=== PATIENT | male | born 1975 | race Hispanic/Latino ===

== ENCOUNTER 2018-05-31 18:58 | Inpatient (IN) | payer SELFPAY ==
[2018-05-31 20:37] LABS: #Lymphocytes 2.1 thou/uL (1.20-3.40); #Monocytes 0.7 thou/uL (0.11-0.59); #Neutrophils 9.8 thou/uL (1.40-6.50); %Basophils 0.2 % (0.0-1.0); %Eosinophils 0.2 % (0.0-10.0); %Lymphocytes 16.3 % (21.0-51.0); %Monocytes 5.6 % (0.0-10.0); %Neutrophils 77.6 % (42.0-75.0); Hemoglobin 15.5 g/dL (14.0-18.0); Mean Corpuscular HGB CONC 33.4 g/dL (32.0-36.0); Mean Corpuscular Hemoglobin 28.9 pg (27.0-31.0); Mean Corpuscular Volume 86.6 fL (78.0-98.0); Mean Platelet Volume 6.7 fL (7.4-10.4); Platelet Count 420 thou/uL (130-400); RBC Distribution Width 11.4 % (11.5-14.5); Red Blood Cell (RBC) Count 5.35 mill/uL (4.70-6.10); White Blood Cell (WBC) Count 12.6 thou/uL (4.8-10.8)
--- NOTE | 2018-05-31 20:52 | RAD ---
RIGHT FOOT RADIOGRAPHS THREE VIEWS 05/31/18 PROVIDED CLINICAL HISTORY: Right foot pain. FINDINGS: There is no evidence for fracture. Soft tissue gas is seen involving the interspace of the second and third digits. Vascular calcifications are seen. Alignment appears anatomic. Joint spaces appear pres erved. IMPRESSION: Soft tissue gas is seen at the second-third digit interspace. Correlate with concerns for infection. POS: [facility]
[2018-05-31 20:57] LABS: ALT (SGPT) Less than 7 U/L (8-55); AST (SGOT) 11 U/L (5-34); Albumin 3.6 g/dL (3.5-5.0); Alkaline Phosphatase 139 U/L (40-150); Anion Gap 15 mmol/L (10-20); BUN (Urea Nitrogen) 16 mg/dL (8.9-20.6); Bilirubin, Total 0.5 mg/dL (0.2-1.2); Calc. Creatinine Clearance 0 mL/min (70-130); Calcium 9.5 mg/dL (7.8-10.44); Carbon Dioxide 25 mmol/L (22-29); Chloride 94 mmol/L (98-107); Estimated GFR-MDRD 60; Globulin 4.5 g/dL (2.4-3.5); Lipase 16 U/L (8-78); Potassium 4.2 mmol/L (3.5-5.1); Protein, Total 8.1 g/dL (6.0-8.3); Sodium 130 mmol/L (136-145)
[2018-05-31 21:01] LABS: Glucose 560 mg/dL (70-105)
[2018-05-31] MEDS ORDERED: Piperacillin/Tazobactam 3.375 GM VIAL ONE (21:09)
[2018-05-31] MEDS ORDERED: Insulin Regular 300 UNITS/3 ML VIAL ONE (21:50)
[2018-06-01] MEDS ORDERED: HYDROcodone/Acetaminophen 10/325 mg Tablet ONE (00:16)
[2018-06-01] MEDS ORDERED: Ondansetron ODT 4 MG TAB PO PRN (00:53)
[2018-06-01] MEDS ORDERED: Acetaminophen 325 MG TAB PO PRN (00:53)
[2018-06-01] MEDS ORDERED: Dextrose 50% Abboject 50 ML SYRINGE SLOW IVP PRN (00:53)
[2018-06-01] MEDS ORDERED: Calcium Carbonate 500 MG ChewTAB PO PRN (00:53)
[2018-06-01] MEDS ORDERED: Bisacodyl 5 MG TAB PO PRN (00:53)
[2018-06-01] MEDS ORDERED: Senokot S 8.6-50 MG TAB PO PRN (00:53)
[2018-06-01] MEDS ORDERED: Dextrose 5% in Water 1,000 ML IV PRN (00:53)
[2018-06-01] MEDS ORDERED: Ondansetron PF 4 MG/2 ML Vial IVP PRN (00:53)
[2018-06-01] MEDS: Sodium Chloride 0.9% 1,000 ML IV SCH ×4 (02:25→23:23)
[2018-06-01 04:10] LABS: Anion Gap 12 mmol/L (10-20); BUN (Urea Nitrogen) 15 mg/dL (8.9-20.6); Calc. Creatinine Clearance 0 mL/min (70-130); Calcium 8.4 mg/dL (7.8-10.44); Carbon Dioxide 28 mmol/L (22-29); Chloride 102 mmol/L (98-107); Estimated GFR-MDRD 83; Glucose 205 mg/dL (70-105); Sodium 138 mmol/L (136-145)
[2018-06-01 04:18] LABS: #Lymphocytes 2.2 thou/uL (1.20-3.40); #Monocytes 1.2 thou/uL (0.11-0.59); #Neutrophils 10.3 thou/uL (1.40-6.50); %Basophils 0.2 % (0.0-1.0); %Eosinophils 0.3 % (0.0-10.0); %Lymphocytes 15.9 % (21.0-51.0); %Monocytes 8.8 % (0.0-10.0); %Neutrophils 74.9 % (42.0-75.0); Mean Corpuscular HGB CONC 34.6 g/dL (32.0-36.0); Mean Corpuscular Hemoglobin 29.6 pg (27.0-31.0); Mean Corpuscular Volume 85.4 fL (78.0-98.0); Mean Platelet Volume 6.7 fL (7.4-10.4); Platelet Count 357 thou/uL (130-400); RBC Distribution Width 11.2 % (11.5-14.5); Red Blood Cell (RBC) Count 4.04 mill/uL (4.70-6.10); White Blood Cell (WBC) Count 13.7 thou/uL (4.8-10.8)
[2018-06-01] MEDS: Piperacillin/Tazobactam 3.375 GM in Sodium Chloride 0.9% 100 ML IVPB SCH ×4 (09:54→21:44)
--- NOTE | 2018-06-01 10:00 | HP ---
CHIEF COMPLAINT: Right foot pain. HISTORY OF PRESENT ILLNESS: This is a 42-year-old male with past medical history of diabetes mellitus type 2, presenting with foot pain, which has been ongoing for the past four days prior to the day of admission. The patient states that he kicked the door and after kicking the door basically, he injured his third toe. At this point, the patient toe has some redness and the pain scale is 6/10 and pain radiates to the dorsal aspect of the foot and the patient denies any tingling or numbness sensation. The patient denies any fever, nausea, vomiting, chest pain, palpitation, or abdominal pain. REVIEW OF SYSTEMS: Positive for right foot pain and wound at the third right toe. Otherwise, all systems are reviewed and are negative. PAST MEDICAL HISTORY: Type 2 diabetes mellitus. PAST SURGICAL HISTORY: No surgical history. PSYCHIATRIC HISTORY: No psych history. FAMILY HISTORY: Reviewed and noncontributory to this visit. SOCIAL HISTORY: The patient drinks socially. The patient denies any illicit drug use and the patient denies any smoking history. ALLERGIES: NO KNOWN DRUG ALLERGIES. CURRENT MEDICATIONS: No medications. PHYSICAL EXAMINATION: VITAL SIGNS: The patient's blood pressure is 178/106, pulse is 113, respiratory rate of 16, temperature of 98.8, and oxygen saturation of 100. GENERAL: The patient is lying in bed, does not appear to be in any acute distress. HEENT: Normocephalic and atraumatic. Pupils are equally round and reactive to light. Extraocular movements are intact. CARDIAC: Positive S1 and S2. Tachycardic. RESPIRATORY: Clear to auscultation bilaterally. No wheezing, no rales, no rhonchi appreciated. ABDOMEN: Soft, nontender, and nondistended. EXTREMITIES: The patient has 5/5 upper extremity strength. Good pulses bilaterally at the upper extremity. Lower extremities; the patient has 5/5 lower extremity strength. No edema noted. The patient do have bruising and slight skin sloughing at the dorsal aspect. There is some erythema noted and there is mild tenderness at the dorsal aspect of the foot and the third toe has some swell and drainage and odorous smell. NEUROLOGIC: Cranial nerves 2 through 12 are grossly intact. No neurologic deficit noted. IMAGING: X-ray of the right foot shows that there is a soft tissue gas seen on the second and third digit interspace. LABORATORY DATA: WBC is 12.6, hemoglobin is 15.5, hematocrit is 46.3, and platelet count is 420. Sodium is 130, potassium is 4.2, chloride is 94, carbon dioxide of 25, anion gap of 15, BUN is 16, creatinine is 1.30, GFR is 30, and glucose is 560. ASSESSMENT AND PLAN: This is a 42-year-old being admitted, 1. Sepsis secondary to right toe cellulitis, concern for possible osteomyelitis. Right foot x-ray shows that there is gas between the second and third digit. At this point, we are very concerned for osteomyelitis. We have started the patient on vancomycin and Zosyn for broad-spectrum coverage. We are going to continue the patient on antibiotics. We will order MRI of the foot. We will continue the patient on the current management. We will give the patient p.r.n. medications for pain. 2. Diabetes mellitus type 2, uncontrolled. At this time, the patient's blood sugar is 560. We are going to do insulin sliding scale. We will monitor the patient's blood sugars. We will continue IV fluids. 3. Acute kidney injury likely due to dehydration. At this time, we will continue IV fluids and we will monitor the patient's creatinines in the a.m. 4. Hypertension, uncontrolled. We will give the patient p.r.n. blood pressure medications. 5. DVT and GI prophylaxis. Job ID: [id number]
[2018-06-01] MEDS: Vancomycin HCl 750 MG in Sodium Chloride 0.9% 250 ML 250 ML IVPB SCH ×2 (10:51→22:38)
[2018-06-01] MEDS ORDERED: Gadobenate Dimeglumine 529 MG/1 ML (20ML VIAL) ONE (11:15)
[2018-06-01] MEDS: HumaLOG 300 UNITS/3 ML VIAL SC PRN ×3 (11:29→23:48)
[2018-06-01] MEDS ORDERED: HumaLOG 300 UNITS/3 ML VIAL ONE (11:35)
--- NOTE | 2018-06-01 15:56 | MRI ---
MRI RIGHT FOOT WITH AND WITHOUT CONTRAST: 06/01/18 HISTORY: Osteomyelitis. COMPARISON: Radiograph prior day. FINDINGS: On T1 weighted imaging sequence, there is loss of normal marrow signal within the middle toe proximal phalanx and middle phalanx. There is associated increased fluid signal as well as cortical erosions. Subcutaneous gas is present. Small lateral abscess is present. There is intraosseous abscess of the middle phalanx. The remainder of the bones are without osteomyelitis. There is some low grade tenosynovitis of the lo ng flexor tendon of the middle toe. No evidence for pyomyositis. Diffuse muscle atrophy. IMPRESSION: Osteomyelitis throughout the proximal phalanx and middle phalanx. There is associated subcutaneous e mphysema, small lateral and surrounding abscess, and intracortical interosseous abscess of the middle phalanx. POS: [facility]
[2018-06-01] MEDS: hydrALAZINE 20 MG/ML VIAL SLOW IVP PRN (16:14)
--- NOTE | 2018-06-01 17:47 | PDOC.PN ---
- Subjective Encounter Start Date: 06/01/18 Encounter Start Time: 10:40 Pt seen for followup re: sepsis. Denies chest pain or shortness of breath. Had right foot pain yesterday, not now. - Objective Resuscitation Status - Order Detail: 06/01/18 00:53 Resuscitation Status Routine Resuscitation Status: FULL: Full Resuscitation MAR Reviewed: Yes Vital Signs & Weight: Vital Signs (12 hours) Temp Pulse Resp BP Pulse Ox 06/01/18 16:14 100 06/01/18 16:10 97.8 F 105 H 16 172/96 H 98 06/01/18 12:53 97.5 F L 100 16 128/78 98 06/01/18 11:45 97.5 F L 100 16 128/78 98 Weight Weight 106 lb 14.787 oz Result Diagrams: 06/01/18 03:20 06/01/18 03:20 Additional Labs: Accuchecks 06/01/18 06/01/18 06/01/18 11:03 06:36 00:20 POC Glucose 362 H 174 H 273 H Labs reviewed by me Phys Exam - Physical Examination Constitutional: NAD HEENT: moist MMs, sclera anicteric, oral pharynx no lesions, 2+ tonsils Neck: no nodes, no JVD, supple, full ROM Respiratory: clear to auscultation bilateral Cardiovascular: RRR, no rub S1, S2 Gastrointestinal: soft, non-tender, no distention, positive bowel sounds Neurological: moves all 4 limbs Psychiatric: normal affect, A&O x 3 Deviation from normal: R foot cellulitis as documented Dx/Plan (1) Sepsis Code(s): A41.9 - SEPSIS, UNSPECIFIED ORGANISM Status: Acute Comment: secondary to diabetic foot infection (2) Cellulitis Code(s): L03.90 - CELLULITIS, UNSPECIFIED Status: Acute Comment: continue IV Zosyn and vancomycin (3) Osteomyelitis Code(s): M86.9 - OSTEOMYELITIS, UNSPECIFIED Status: Acute Comment: continue IV Zosyn and vancomycin (4) DM2 (diabetes mellitus, type 2) Status: Chronic Comment: continue accuchecks, insulin sliding scale - Plan * . Review of Systems - Review of Systems Constitutional: negative: fever, chills, sweats, weakness, malaise Respiratory: negative: Cough, Shortness of Breath, SOB with Excertion, Pleuritic Pain, Wheezing Cardiovascular: negative: chest pain, palpitations, orthopnea, paroxysmal nocturnal dyspnea, edema, light headedness Gastrointestinal: negative: Nausea, Vomiting, Abdominal Pain, Diarrhea, Constipation, Melena, Hematochezia Genitourinary: negative: Dysuria, Frequency, Incontinence, Hematuria, Retention Musculoskeletal: Foot Pain Skin: Lesions - Medications/Allergies Allergies/Adverse Reactions: Allergies Allergy/AdvReac Type Severity Reaction Status Date / Time No Known Drug Allergies Allergy Verified 06/01/18 13:17 Medications: Current Medications Acetaminophen (Tylenol) 650 mg PO Q4H PRN PRN Reason: Headache/Fever/Mild Pain (1-3) Bisacodyl (Dulcolax) 10 mg PO DAILYPRN PRN PRN Reason: Constipation Calcium Carbonate (Tums) 1,000 mg PO Q4H PRN PRN Reason: Heartburn or Indigestion Dextrose/Water (Dextrose 50%) 25 gm SLOW IVP PRN PRN PRN Reason: Hypoglycemia Glucagon (Glucagon) 1 mg IM PRN PRN PRN Reason: Hypoglycemia Hydralazine HCl (Apresoline) 10 mg SLOW IVP Q6H PRN PRN Reason: SBP>170 Last Admin: 06/01/18 16:14 Dose: 10 mg Sodium Chloride (Normal Saline 0.9%) 1,000 mls @ 100 mls/hr IV .Q10H [facility] Last Admin: 06/01/18 12:11 Dose: Not Given Dextrose/Water (D5w) 1,000 mls @ 0 mls/hr IV .Q0M PRN PRN Reason: Hypoglycemia Vancomycin HCl 750 mg/ Sodium (Chloride) 250 mls @ 250 mls/hr IVPB 1000,2200 [facility] Last Admin: 06/01/18 10:51 Dose: 250 mls Piperacillin Sod/Tazobactam (Sod 3.375 gm/ Sodium Chloride) 100 mls @ 200 mls/ hr IVPB 0300,0900,1500,2100 [facility] Last Admin: 06/01/18 15:30 Dose: 100 mls Influenza Virus Vaccine Quadrival (Fluzone Quad [id number] Syringe) 0.5 ml IM .ONCE ONE Stop: 06/01/18 21:01 Insulin Human Lispro (Humalog) 0 units SC .MILD SLIDING SCALE PRN PRN Reason: Mild Correctional Scale Last Admin: 06/01/18 15:30 Dose: 5 unit Insulin Human Lispro (Humalog) 0 units SC .BEDTIME SLIDING SC PRN PRN Reason: Bedtime Correctional Scale Miscellaneous Medication (Pharmacy To Dose) 1 each IVPB PRN PRN PRN Reason: Pharmacy to dose Ondansetron HCl (Zofran Odt) 4 mg PO Q6H PRN PRN Reason: Nausea/Vomiting Ondansetron HCl (Zofran) 4 mg IVP Q6H PRN PRN Reason: Nausea/Vomiting Senna/Docusate Sodium (Senokot S) 2 tab PO BIDPRN PRN PRN Reason: Constipation Sodium Chloride (Flush - Normal Saline) 10 ml IVF Q12HR PRN PRN Reason: Saline Flush Sodium Chloride (Flush - Normal Saline) 10 ml IVF PRN PRN PRN Reason: Saline Flush
[2018-06-01] MEDS ORDERED: traMADol HCl 50 MG TAB PO PRN (20:07)
[2018-06-01] MEDS ORDERED: Acetaminophen/Codeine 30-300mg Tablet PO PRN (20:07)
--- NOTE | 2018-06-02 01:20 | HP ---
HISTORY OF PRESENT ILLNESS: Ede Randolhp is a 42-year-old male patient, who does not take medications at home, but has taken insulin in the past. [place] He works in a kitchen locally. He has his and children with him. He presents to the hospital with a right third toe problem. He has had plain x-rays and MRI demonstrating changes in soft tissue gas and osteomyelitis. He had been placed on vancomycin and Zosyn. ALLERGIES: NONE. TOBACCO: None. ALCOHOL: Rarely. MEDICATIONS: None at home. Currently on insulin, vancomycin, and Zosyn in the hospital. PAST SURGICAL HISTORY: Noncontributory. PAST MEDICAL HISTORY: Diabetes mellitus. REVIEW OF SYSTEMS: Ten-point noncontributory. FAMILY HISTORY: Noncontributory. PHYSICAL EXAMINATION: VITAL SIGNS: 5 feet 6 inches, 106 pounds, temperature 97.8, heart rate 116, and blood pressure 172/96. HEAD, EARS, EYES, NOSE AND THROAT: Unremarkable. LUNGS: Clear to auscultation. CARDIAC: Regular rhythm without murmur or gallop. ABDOMEN: Soft and nontender. MUSCULOSKELETAL: Palpable femoral, popliteal, dorsalis pedis, posterior tibial pulses. Right foot edema, cellulitis to the ankle, edematous right middle toe, ulcerations medially and laterally into the interphalangeal joint. ASSESSMENT AND PLAN: 1. Osteomyelitis of the right third toe. Plan amputation of that toe with healing by secondary intention. He understands risks and benefits and consents. Laboratories revealed normal renal function. We will check hemoglobin A1c in the morning. 2. Diabetes mellitus, noncompliant. We have expressed him the importance of attending to his diabetes. Job ID: [id number]
[2018-06-02] MEDS: Piperacillin/Tazobactam 3.375 GM in Sodium Chloride 0.9% 100 ML IVPB SCH ×2 (03:35→10:14)
[2018-06-02] MEDS: HumaLOG 300 UNITS/3 ML VIAL SC PRN ×3 (06:00→21:05)
[2018-06-02 06:03] LABS: Hemoglobin A1c 14.9 % (4.0-6.0)
[2018-06-02] MEDS ORDERED: Midazolam HCl 2 mg/2 ml Vial ONE (06:59)
[2018-06-02] MEDS ORDERED: Fentanyl 100 MCG/2 ML VIAL ONE (06:59)
[2018-06-02] MEDS ORDERED: Insulin Regular 300 UNITS/3 ML VIAL ONE (07:12)
[2018-06-02] MEDS ORDERED: Piperacillin/Tazobactam 3.375 GM VIAL ONE (07:54)
[2018-06-02] MEDS ORDERED: Promethazine HCl 25 MG/ML VIAL IM PRN (08:37)
[2018-06-02] MEDS ORDERED: Promethazine HCl 25 MG/ML VIAL SLOW IVP PRN (08:37)
[2018-06-02] MEDS ORDERED: Ondansetron HCl/PF 4 MG/2 ML Vial IVP PRN (08:37)
[2018-06-02] MEDS ORDERED: traMADol HCl 50 MG TAB PO PRN (08:37)
[2018-06-02] MEDS ORDERED: Acetaminophen 500 MG TAB PO PRN (08:37)
[2018-06-02 09:45] LABS: Vancomycin, Trough 8.6 ug/mL
[2018-06-02] MEDS ORDERED: Vancomycin HCl 1 GM in Premix Bag 1 BAG IVPB SCH (10:00)
[2018-06-02] MEDS: Sodium Chloride 0.9% 1,000 ML IV SCH ×3 (10:10→23:24)
--- NOTE | 2018-06-02 10:22 | OP ---
DATE OF PROCEDURE: 06/02/2018 PREOPERATIVE DIAGNOSES: Diabetic infection, gangrene, right third toe with osteomyelitis. POSTOPERATIVE DIAGNOSES: Diabetic infection, gangrene, right third toe with osteomyelitis. PROCEDURE PERFORMED: Amputation of the right third toe and metatarsal left open for healing by secondary intention, culture submitted. Wound Care called to place a VAC. ANESTHESIA: General anesthesia. Of note, good blood supply. Plan is for oral antibiotics at home after intravenous antibiotics 2 to 3 days outpatient Wound Care [facility] back here twice a week, oral antibiotics on discharge for 10 days. DESCRIPTION OF PROCEDURE: The patient was taken to the operating room, where under general anesthesia, right lower extremity was prepared with ChloraPrep and draped in routine fashion. Incision was made to try to salvage the third toe to the proximal phalanx, but the gangrenous infectious process extended more proximally requiring a ray amputation. Head of the metatarsal was resected with rongeurs, totally removed. Irrigated the soft tissue. Gangrenous tissue debrided back to healthy tissue. Good bleeding was noted. Wound was irrigated. Culture was submitted to Microbiology from the purulent gangrenous toe infection. The patient tolerated the procedure well as Wound Care Team arrived to place wound VAC. Job ID: [id number]
[2018-06-02] MEDS: Vancomycin HCl 750 MG in Sodium Chloride 0.9% 250 ML 250 ML IVPB SCH (10:27)
[2018-06-02] MEDS ORDERED: Ondansetron PF 4 MG/2 ML Vial ONE (10:43)
[2018-06-02] MEDS ORDERED: PROPOFOL 200 MG/20 ML VIAL ONE (10:43)
[2018-06-02] MEDS ORDERED: Succinylcholine Chloride 20 MG/ML 10 ml SYRINGE FS ONE (10:43)
[2018-06-02] MEDS ORDERED: Lidocaine 1% PF 5 ML VIAL ONE (10:43)
[2018-06-02] MEDS ORDERED: PHENYLEPHRINE-NS 100 MCG/ML 10 ML SYRINGE ONE (10:43)
--- NOTE | 2018-06-02 13:14 | PDOC.PN ---
- Subjective Encounter Start Date: 06/02/18 Encounter Start Time: 13:12 Pt seen for followup re: sepsis. Denies chest pain, shortness of breath, fevers or chills. - Objective Resuscitation Status - Order Detail: 06/01/18 00:53 Resuscitation Status Routine Resuscitation Status: FULL: Full Resuscitation MAR Reviewed: Yes Vital Signs & Weight: Vital Signs (12 hours) Temp Pulse Resp BP Pulse Ox 06/02/18 11:45 97.5 F L 88 18 110/57 L 94 L 06/02/18 11:15 97.5 F L 91 18 123/64 94 L 06/02/18 10:45 97.4 F L 91 18 137/75 97 06/02/18 10:15 97.5 F L 91 18 137/74 95 06/02/18 10:00 97.5 F L 91 18 129/73 95 06/02/18 09:45 97.5 F L 91 18 136/75 96 06/02/18 09:30 97.5 F L 91 18 137/75 96 06/02/18 09:15 97.5 F L 96 18 135/74 97 06/02/18 04:00 98.5 F 96 18 134/77 96 Weight Weight 106 lb 14.787 oz Result Diagrams: 06/01/18 03:20 06/01/18 03:20 Additional Labs: Accuchecks 06/02/18 06/02/18 06/02/18 10:17 08:08 07:10 POC Glucose 150 H 173 H 262 H 06/02/18 06/01/18 06/01/18 05:36 21:39 15:15 POC Glucose 321 H 293 H 314 H labs reviewed by me Phys Exam - Physical Examination Constitutional: NAD HEENT: moist MMs, sclera anicteric, oral pharynx no lesions, 2+ tonsils Neck: no nodes, no JVD, supple, full ROM Respiratory: no wheezing, no rales, no rhonchi, clear to auscultation bilateral Cardiovascular: RRR, no rub S1, S2 Gastrointestinal: soft, non-tender, no distention, positive bowel sounds s/p R 3rd toe amputation Neurological: moves all 4 limbs Psychiatric: normal affect Dx/Plan (1) Sepsis Code(s): A41.9 - SEPSIS, UNSPECIFIED ORGANISM Status: Acute Comment: Improving, secondary to diabetic foot infection (2) Osteomyelitis Code(s): M86.9 - OSTEOMYELITIS, UNSPECIFIED Status: Acute Comment: s/p toe amputation (3) DM2 (diabetes mellitus, type 2) Status: Chronic Comment: reasonably controlled (4) Cellulitis Code(s): L03.90 - CELLULITIS, UNSPECIFIED Status: Resolved Comment: s/p amputation - Plan * . Review of Systems - Review of Systems Constitutional: negative: fever, chills, sweats, weakness, malaise Respiratory: negative: Cough, Shortness of Breath, SOB with Excertion, Pleuritic Pain, Wheezing Cardiovascular: negative: chest pain, palpitations, orthopnea, paroxysmal nocturnal dyspnea, edema, light headedness Gastrointestinal: negative: Nausea, Vomiting, Abdominal Pain, Diarrhea, Constipation, Melena, Hematochezia Musculoskeletal: Foot Pain Skin: Lesions. negative: Rash, Harlan, Bruising - Medications/Allergies Allergies/Adverse Reactions: Allergies Allergy/AdvReac Type Severity Reaction Status Date / Time No Known Drug Allergies Allergy Verified 06/01/18 13:17 Medications: Current Medications Acetaminophen (Tylenol) 1,000 mg PO Q6H PRN PRN Reason: Moderate to Severe Pain (6-10) Acetaminophen/Codeine Phosphate (Tylenol #3) 1 tab PO Q6H PRN PRN Reason: Mild Pain (1-3) Last Admin: 06/01/18 23:21 Dose: 1 tab Bisacodyl (Dulcolax) 10 mg PO DAILYPRN PRN PRN Reason: Constipation Calcium Carbonate (Tums) 1,000 mg PO Q4H PRN PRN Reason: Heartburn or Indigestion Dextrose/Water (Dextrose 50%) 25 gm SLOW IVP PRN PRN PRN Reason: Hypoglycemia Glucagon (Glucagon) 1 mg IM PRN PRN PRN Reason: Hypoglycemia Hydralazine HCl (Apresoline) 10 mg SLOW IVP Q6H PRN PRN Reason: SBP>170 Last Admin: 06/01/18 16:14 Dose: 10 mg Sodium Chloride (Normal Saline 0.9%) 1,000 mls @ 100 mls/hr IV .Q10H [facility] Last Admin: 06/02/18 10:10 Dose: 1,000 mls Dextrose/Water (D5w) 1,000 mls @ 0 mls/hr IV .Q0M PRN PRN Reason: Hypoglycemia Cefazolin Sodium/Dextrose 2 gm (/ Device) 50 mls @ 100 mls/hr IVPB Q8HR [facility] Insulin Human Lispro (Humalog) 0 units SC .MILD SLIDING SCALE PRN PRN Reason: Mild Correctional Scale Last Admin: 06/02/18 06:00 Dose: 5 unit Insulin Human Lispro (Humalog) 0 units SC .BEDTIME SLIDING SC PRN PRN Reason: Bedtime Correctional Scale Last Admin: 06/01/18 23:48 Dose: 3 unit Miscellaneous Medication (Pharmacy To Dose) 1 each IVPB PRN PRN PRN Reason: Pharmacy to dose Ondansetron HCl (Zofran Odt) 4 mg PO Q6H PRN PRN Reason: Nausea/Vomiting Ondansetron HCl (Zofran) 4 mg IVP Q6H PRN PRN Reason: Nausea/Vomiting Senna/Docusate Sodium (Senokot S) 2 tab PO BIDPRN PRN PRN Reason: Constipation Sodium Chloride (Flush - Normal Saline) 10 ml IVF Q12HR PRN PRN Reason: Saline Flush Sodium Chloride (Flush - Normal Saline) 10 ml IVF PRN PRN PRN Reason: Saline Flush Tramadol HCl (Ultram) 50 mg PO Q6H PRN PRN Reason: Moderate Pain (4-6) Last Admin: 06/01/18 22:39 Dose: 50 mg Tramadol HCl (Ultram) 50 mg PO Q6H PRN PRN Reason: Pain Tramadol HCl (Ultram) 100 mg PO Q6H PRN PRN Reason: Pain
[2018-06-02 13:37] VITALS: BMI 26.4
[2018-06-02] MEDS: CEFAZOLIN 2 GM/50 ML-DEXTROSE 2 GM in Premix Bag 1 BAG IVPB SCH ×2 (14:39→21:17)
[2018-06-02] MEDS: traMADol HCl 50 MG TAB PO PRN (18:22)
--- NOTE | 2018-06-02 22:00 | CON ---
DATE OF CONSULTATION: 06/02/2018 REASON FOR CONSULTATION: Toe osteomyelitis. HISTORY OF PRESENT ILLNESS: A 42-year-old with history of type 2 diabetes, developed injury to the third toe, right foot. This was followed by swelling, erythema, and pain. MRI demonstrated osteomyelitis throughout the proximal phalanx and middle phalanx, subcutaneous emphysema, surrounding abscess, and intracortical interosseous abscess of the middle phalanx. The patient underwent ray amputation of that digit. Pathology is pending. Currently, he is awake and alert. Appears in no distress. No headaches. No cough, sputum production, or chest pain. No abdominal pain or diarrhea. No genitourinary symptoms. No other joint symptoms. PAST MEDICAL HISTORY: Type 2 diabetes. PAST SURGICAL HISTORY: Negative. FAMILY HISTORY: Noncontributory. SOCIAL HISTORY: Drinks occasionally. Never smoker. . ALLERGIES: NONE. CURRENT MEDICATIONS: 1. Cefazolin. 2. Hydralazine. 3. Ondansetron. 4. Tramadol. PHYSICAL EXAMINATION: VITAL SIGNS: Normal. SKIN: Shows swollen third digit. Of course now it has been amputated and the area was dressed. Peripheral IV access. No Junior catheter. 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 HEENT: Pupils in the left side are round and reactive. Oral cavity normal. NECK: Supple. No jugular venous distention. LUNGS: Symmetric. Clear breath sounds. HEART: S1 and S2. Regular rate. No S3 or S4. ABDOMEN: Soft. Not distended or tender. No ascites. No bladder distention. No joint inflammatory activity outside the area of involvement. EXTREMITIES: Pulses, dorsalis pedis 1+. Moves extremities equally. LABORATORY DATA: Microbiology with group B strep and alpha hemolytic Streptococcus. ASSESSMENT: Type 2 diabetes with osteomyelitis of third toe, status post amputation of the ray. DISCUSSION: The patient should be able to be transitioned to oral antimicrobials probably Keflex. Pending the final results of cultures. Duration of therapy, 2 to 3 weeks after discharge. Follow up in the clinic. Job ID: [id number]
[2018-06-03] MEDS: Sodium Chloride 0.9% 1,000 ML IV SCH (03:00)
[2018-06-03] MEDS: CEFAZOLIN 2 GM/50 ML-DEXTROSE 2 GM in Premix Bag 1 BAG IVPB SCH ×3 (05:55→21:36)
--- NOTE | 2018-06-03 12:34 | PDOC.PN ---
- Subjective Encounter Start Date: 06/03/18 Encounter Start Time: 07:00 Pt seen for followup re: osteomyelitis. Feels well. - Objective Resuscitation Status - Order Detail: 06/01/18 00:53 Resuscitation Status Routine Resuscitation Status: FULL: Full Resuscitation MAR Reviewed: Yes Vital Signs & Weight: Vital Signs (12 hours) Temp Pulse Resp BP Pulse Ox 06/03/18 08:00 97.9 F 99 16 159/87 H 97 06/03/18 04:00 98.8 F 100 18 138/79 97 Weight Weight 164 lb I&O: 06/02/18 06/03/18 06/04/18 06:59 06:59 06:59 Intake Total 2480 Output Total 800 Balance 1680 Result Diagrams: 06/01/18 03:20 06/01/18 03:20 Additional Labs: Accuchecks 06/03/18 06/02/18 06/02/18 06:07 20:39 15:48 POC Glucose 189 H 324 H 283 H 06/02/18 09:00 POC Glucose 132 H labs reviewed by me Phys Exam - Physical Examination Constitutional: NAD HEENT: moist MMs, sclera anicteric, oral pharynx no lesions, 2+ tonsils Neck: no nodes, no JVD, supple, full ROM Respiratory: clear to auscultation bilateral Cardiovascular: RRR, no rub S1, S2 Gastrointestinal: soft, non-tender, no distention, positive bowel sounds Neurological: moves all 4 limbs Psychiatric: normal affect, A&O x 3 Dx/Plan (1) Osteomyelitis Code(s): M86.9 - OSTEOMYELITIS, UNSPECIFIED Status: Acute Comment: s/p toe amputation, on cefazolin (2) DM2 (diabetes mellitus, type 2) Status: Chronic Comment: reasonable control (3) Cellulitis Code(s): L03.90 - CELLULITIS, UNSPECIFIED Status: Resolved (4) Sepsis Code(s): A41.9 - SEPSIS, UNSPECIFIED ORGANISM Status: Resolved - Plan * . Review of Systems - Review of Systems Constitutional: negative: fever, chills, sweats, weakness, malaise Cardiovascular: negative: chest pain, palpitations, orthopnea, paroxysmal nocturnal dyspnea, edema, light headedness Gastrointestinal: negative: Nausea, Vomiting, Abdominal Pain, Diarrhea, Constipation, Melena, Hematochezia Genitourinary: negative: Dysuria, Frequency, Incontinence, Hematuria, Retention Musculoskeletal: Foot Pain. negative: Neck Pain, Shoulder Pain, Arm Pain, Back Pain, Hand Pain, Leg Pain - Medications/Allergies Allergies/Adverse Reactions: Allergies Allergy/AdvReac Type Severity Reaction Status Date / Time No Known Drug Allergies Allergy Verified 06/01/18 13:17 Medications: Current Medications Acetaminophen (Tylenol) 1,000 mg PO Q6H PRN PRN Reason: Moderate to Severe Pain (6-10) Acetaminophen/Codeine Phosphate (Tylenol #3) 1 tab PO Q6H PRN PRN Reason: Mild Pain (1-3) Last Admin: 06/01/18 23:21 Dose: 1 tab Bisacodyl (Dulcolax) 10 mg PO DAILYPRN PRN PRN Reason: Constipation Calcium Carbonate (Tums) 1,000 mg PO Q4H PRN PRN Reason: Heartburn or Indigestion Dextrose/Water (Dextrose 50%) 25 gm SLOW IVP PRN PRN PRN Reason: Hypoglycemia Glucagon (Glucagon) 1 mg IM PRN PRN PRN Reason: Hypoglycemia Hydralazine HCl (Apresoline) 10 mg SLOW IVP Q6H PRN PRN Reason: SBP>170 Last Admin: 06/01/18 16:14 Dose: 10 mg Dextrose/Water (D5w) 1,000 mls @ 0 mls/hr IV .Q0M PRN PRN Reason: Hypoglycemia Cefazolin Sodium/Dextrose 2 gm (/ Device) 50 mls @ 100 mls/hr IVPB Q8HR [facility] Last Admin: 06/03/18 05:55 Dose: 50 mls Insulin Human Lispro (Humalog) 0 units SC .MILD SLIDING SCALE PRN PRN Reason: Mild Correctional Scale Last Admin: 06/02/18 17:52 Dose: 4 unit Insulin Human Lispro (Humalog) 0 units SC .BEDTIME SLIDING SC PRN PRN Reason: Bedtime Correctional Scale Last Admin: 06/02/18 21:05 Dose: 4 unit Miscellaneous Medication (Pharmacy To Dose) 1 each IVPB PRN PRN PRN Reason: Pharmacy to dose Ondansetron HCl (Zofran Odt) 4 mg PO Q6H PRN PRN Reason: Nausea/Vomiting Ondansetron HCl (Zofran) 4 mg IVP Q6H PRN PRN Reason: Nausea/Vomiting Senna/Docusate Sodium (Senokot S) 2 tab PO BIDPRN PRN PRN Reason: Constipation Sodium Chloride (Flush - Normal Saline) 10 ml IVF Q12HR PRN PRN Reason: Saline Flush Sodium Chloride (Flush - Normal Saline) 10 ml IVF PRN PRN PRN Reason: Saline Flush Tramadol HCl (Ultram) 50 mg PO Q6H PRN PRN Reason: Pain Tramadol HCl (Ultram) 100 mg PO Q6H PRN PRN Reason: Pain Last Admin: 06/02/18 18:22 Dose: 100 mg
[2018-06-03] MEDS: HumaLOG 300 UNITS/3 ML VIAL SC PRN ×3 (13:07→21:36)
[2018-06-03] MEDS: hydrALAZINE 20 MG/ML VIAL SLOW IVP PRN (20:30)
[2018-06-04] MEDS: hydrALAZINE 20 MG/ML VIAL SLOW IVP PRN ×2 (03:41→23:12)
[2018-06-04] MEDS: CEFAZOLIN 2 GM/50 ML-DEXTROSE 2 GM in Premix Bag 1 BAG IVPB SCH ×3 (05:31→21:54)
[2018-06-04] MEDS: traMADol HCl 50 MG TAB PO PRN (05:38)
[2018-06-04] MEDS: HumaLOG 300 UNITS/3 ML VIAL SC PRN ×4 (05:43→21:55)
--- NOTE | 2018-06-04 12:32 | PDOC.PN ---
- Subjective Encounter Start Date: 06/04/18 Encounter Start Time: 07:00 Pt seen for followup re: osteomyelitis. No complaints today. - Objective Resuscitation Status - Order Detail: 06/01/18 00:53 Resuscitation Status Routine Resuscitation Status: FULL: Full Resuscitation MAR Reviewed: Yes Vital Signs & Weight: Vital Signs (12 hours) Temp Pulse Resp BP Pulse Ox 06/04/18 09:00 97.4 F L 89 16 128/78 95 06/04/18 08:00 95 06/04/18 05:34 136/79 06/04/18 03:41 107 H 06/04/18 03:16 98.3 F 107 H 14 198/108 H 100 06/04/18 01:00 98.6 F 102 H 14 161/85 H 95 Weight Weight 164 lb I&O: 06/03/18 06/04/18 06/05/18 06:59 06:59 06:59 Intake Total 2480 970 591 Output Total 363 447 3828 Balance 1680 145 -884 Result Diagrams: 06/01/18 03:20 06/01/18 03:20 Additional Labs: Accuchecks 06/04/18 06/03/18 06/03/18 05:33 20:54 15:41 POC Glucose 247 H 320 H 287 H 06/03/18 12:39 POC Glucose 226 H labs reviewed by me Phys Exam - Physical Examination Constitutional: NAD HEENT: moist MMs Neck: supple Respiratory: clear to auscultation bilateral Cardiovascular: RRR Gastrointestinal: soft Neurological: moves all 4 limbs Psychiatric: normal affect Deviation from normal: R foot woundvac Dx/Plan (1) Osteomyelitis Code(s): M86.9 - OSTEOMYELITIS, UNSPECIFIED Status: Acute Comment: on cefazolin (2) DM2 (diabetes mellitus, type 2) Status: Chronic Comment: switch to moderate insulin sliding scale (3) Cellulitis Code(s): L03.90 - CELLULITIS, UNSPECIFIED Status: Resolved (4) Sepsis Code(s): A41.9 - SEPSIS, UNSPECIFIED ORGANISM Status: Resolved - Plan * . Review of Systems - Review of Systems Respiratory: negative: Cough, Shortness of Breath, SOB with Excertion, Pleuritic Pain, Wheezing Cardiovascular: negative: chest pain, palpitations, orthopnea, paroxysmal nocturnal dyspnea, edema, light headedness - Medications/Allergies Allergies/Adverse Reactions: Allergies Allergy/AdvReac Type Severity Reaction Status Date / Time No Known Drug Allergies Allergy Verified 06/01/18 13:17 Medications: Current Medications Acetaminophen (Tylenol) 1,000 mg PO Q6H PRN PRN Reason: Moderate to Severe Pain (6-10) Acetaminophen/Codeine Phosphate (Tylenol #3) 1 tab PO Q6H PRN PRN Reason: Mild Pain (1-3) Last Admin: 06/01/18 23:21 Dose: 1 tab Bisacodyl (Dulcolax) 10 mg PO DAILYPRN PRN PRN Reason: Constipation Calcium Carbonate (Tums) 1,000 mg PO Q4H PRN PRN Reason: Heartburn or Indigestion Dextrose/Water (Dextrose 50%) 25 gm SLOW IVP PRN PRN PRN Reason: Hypoglycemia Glucagon (Glucagon) 1 mg IM PRN PRN PRN Reason: Hypoglycemia Hydralazine HCl (Apresoline) 10 mg SLOW IVP Q6H PRN PRN Reason: SBP>170 Last Admin: 06/04/18 03:41 Dose: 10 mg Dextrose/Water (D5w) 1,000 mls @ 0 mls/hr IV .Q0M PRN PRN Reason: Hypoglycemia Cefazolin Sodium/Dextrose 2 gm (/ Device) 50 mls @ 100 mls/hr IVPB Q8HR ELIZA Last Admin: 06/04/18 05:31 Dose: 50 mls Insulin Human Lispro (Humalog) 0 units SC .MILD SLIDING SCALE PRN PRN Reason: Mild Correctional Scale Last Admin: 06/04/18 05:43 Dose: 3 unit Insulin Human Lispro (Humalog) 0 units SC .BEDTIME SLIDING SC PRN PRN Reason: Bedtime Correctional Scale Last Admin: 06/03/18 21:36 Dose: 4 unit Ondansetron HCl (Zofran Odt) 4 mg PO Q6H PRN PRN Reason: Nausea/Vomiting Ondansetron HCl (Zofran) 4 mg IVP Q6H PRN PRN Reason: Nausea/Vomiting Senna/Docusate Sodium (Senokot S) 2 tab PO BIDPRN PRN PRN Reason: Constipation Sodium Chloride (Flush - Normal Saline) 10 ml IVF Q12HR PRN PRN Reason: Saline Flush Last Admin: 06/03/18 20:30 Dose: 10 ml Sodium Chloride (Flush - Normal Saline) 10 ml IVF PRN PRN PRN Reason: Saline Flush Tramadol HCl (Ultram) 50 mg PO Q6H PRN PRN Reason: Pain Tramadol HCl (Ultram) 100 mg PO Q6H PRN PRN Reason: Pain Last Admin: 06/04/18 05:38 Dose: 100 mg
[2018-06-05 04:44] VITALS: TEMP 98.2
[2018-06-05] MEDS: CEFAZOLIN 2 GM/50 ML-DEXTROSE 2 GM in Premix Bag 1 BAG IVPB SCH ×2 (05:35→13:24)
[2018-06-05] MEDS: HumaLOG 300 UNITS/3 ML VIAL SC PRN ×3 (05:39→18:22)
[2018-06-05] MEDS: traMADol HCl 50 MG TAB PO PRN (09:56)
--- NOTE | 2018-06-05 11:13 | PRG ---
DATE OF SERVICE: 06/05/2018 Ede Randolph wound foot looks good. The wound is healthy, bleeding, in fact had a pulsatile arterial bleeder that I placed a 4-0 Vicryl. The patient's wound cultures reveal Streptococcus, blood cultures are negative. The patient's cellulitis has resolved. In my opinion, the patient will be discharged to home with an outpatient wound VAC. He has an appointment on Tuesday and this can be canceled and he can go Tuesday for a wound VAC change. I will see him in Wound Care in the next few weeks. This should heal well secondarily. I could see him in my office in 3 to 4 weeks. The patient can go home with oral antibiotics for 10 days. He can be treated with Tylenol and Ultram for pain. He does not need Tylenol No. 3 and has not been taken it. Job ID: [id number]
[2018-06-05 12:44] VITALS: BP 146/79
--- NOTE | 2018-06-06 04:22 | DIS ---
DATE OF ADMISSION: 05/31/2018 DATE OF DISCHARGE: 06/05/2018 PRIMARY CARE PROVIDER: Olga Lidia Teixeira MD DISCHARGE DIAGNOSES: 1. Sepsis. 2. Osteomyelitis. 3. Cellulitis. CONDITION OF PATIENT ON THE DAY OF DISCHARGE: Stable. I assessed Mr. Randolph on the day of discharge. He denies any chest pain or shortness of breath. Vital signs are stable. S1 and S2 are heard, regular. Lungs are clear to auscultation bilaterally. CONSULTATIONS DURING THIS HOSPITALIZATION: 1. General Surgery, Jewel Pearson MD. 2. Infectious Diseases, Erasmo Wu MD. DISCHARGE MEDICATIONS: 1. Cephalexin 500 mg 4 times a day for 3 weeks. 2. Metformin 500 mg 2 times a day. HOSPITAL COURSE: Mr. Randolph is a pleasant 42-year-old gentleman, who was admitted to [facility] on May 31, 2018, for sepsis. Please refer to Dr. Foss's history and physical note dated June 01, 2018 for further details. MRI of the right foot showed osteomyelitis throughout the proximal phalanx and middle phalanx. He had associated subcutaneous emphysema, small lateral and surrounding abscess and intracortical intraosseous abscess of the middle phalanx. He was seen by General Surgery and Infectious Disease Services. On June 02, he underwent amputation of the right third toe and metatarsal left open for healing by secondary intention. He had wound VAC applied. The biopsy report showed acute osteomyelitis, necrosis and abscess extending to soft tissue margin. Bacterial cultures grew Streptococcus agalactiae and Streptococcus anginosus group. Preliminary blood cultures were negative at 48 hours. Infectious Diseases Service recommended starting him on Keflex for 2 to 3 weeks. At the time of this dictation, wound VAC has been approved and patient is waiting to go home after wound VAC is delivered. Many thanks for allowing me to participate in your patient's care. Please feel free to contact me with any questions or concerns. I started him on metformin at the time of discharge. He will likely need to be on other antidiabetic agents as well. His hemoglobin A1c during this hospitalization was 14.9. DISCHARGE DESTINATION: Home. Total amount of time spent coordinating this discharge: 33 minutes. Job ID: [id number]
== END 2018-06-05 20:36 | disposition home or self-care (01) | DRG 854 ==
LOC: ERS 18:58 → ERHOLD 21:38 → ONC 22:16
PROVIDERS: ADMIT Internal Medicine; ATTEND Internal Medicine
PROC: 0Y6T0Z1 Detachment at Right 3rd Toe, High, Open Approach (ICD-10-PCS; principal; 2018-06-02)
DX: A41.9 Sepsis, unspecified organism (principal); E11.52 Type 2 diabetes mellitus with diabetic peripheral angiopathy with gangrene; I96 Gangrene, not elsewhere classified; M86.9 Osteomyelitis, unspecified; N17.9 Acute kidney failure, unspecified; E11.65 Type 2 diabetes mellitus with hyperglycemia; E11.69 Type 2 diabetes mellitus with other specified complication; L03.031 Cellulitis of right toe; B95.4 Other streptococcus as the cause of diseases classified elsewhere; Z79.84 Long term (current) use of oral hypoglycemic drugs; E86.0 Dehydration; I10 Essential (primary) hypertension; Z91.14 Patient's other noncompliance with medication regimen
CPT/HCPCS: 36415; 36416; 80048; 80053; 80202; 83036; 83605; 83690; 85025; 86140; 87040; 87070; 87077; 87186; 87205; 88305; 88311; 90471; 90686; 96365; 96366; 96367; A9579; G0008; J0360; J1815; J2001; J2250; J2405; J2543; J2704; J3010; J3370; J7050

== ENCOUNTER 2018-06-09 10:14 | Outpatient (CLI) | payer SELFPAY ==
[2018-06-09] MEDS ORDERED: Sodium Chloride 0.9% 15 ML NEB ONE (16:00)
== END 2018-06-09 10:15 | disposition home or self-care (01) ==
LOC: WCC 10:14
PROVIDERS: ATTEND Family Medicine
PROC: 0H97XZZ Drainage of Abdomen Skin, External Approach (ICD-10-PCS; principal; 2018-06-09)
DX: Z47.81 Encounter for orthopedic aftercare following surgical amputation (principal); Z89.421 Acquired absence of other right toe(s)
CPT/HCPCS: 36416; 97605; A4218

== ENCOUNTER 2018-06-12 08:44 | Outpatient (CLI) | payer SELFPAY ==
[2018-06-12] MEDS ORDERED: Sodium Chloride 0.9% 15 ML NEB ONE (11:11)
== END 2018-06-12 08:45 | disposition home or self-care (01) ==
LOC: WCC 08:44
PROVIDERS: ATTEND Family Medicine
DX: Z47.81 Encounter for orthopedic aftercare following surgical amputation (principal); Z89.421 Acquired absence of other right toe(s)
CPT/HCPCS: 36416; 97602; A4218